=== PATIENT | female | born 1960 | race Caucasian/White ===

== ENCOUNTER 2023-01-02 07:24 | Outpatient (CLI) | payer BC ==
[2023-01-02 07:55] LABS: BASOPHILS # (AUTO) 0.1 10^3/uL (0.0-0.1); EOSINOPHILS # (AUTO) 0.3 10^3/uL (0.0-0.7); EOSINOPHILS % (AUTO) 3.3 %; HCT - HEMATOCRIT 43.4 % (37.0-47.0); HGB - HEMOGLOBIN 13.9 g/dL (12.0-16.0); MEAN CORPUSCULAR VOLUME 96.9 fL (81.0-99.0); MEAN PLATELET VOLUME 10.2 fL (7.9-10.8); MONOCYTES # (AUTO) 0.6 10^3/uL (0.0-1.0); MONOCYTES % (AUTO) 7.2 %; NEUTROPHILS # (AUTO) 5.2 10^3/uL (1.5-6.6); NEUTROPHILS % (AUTO) 63.3 %; PLT - PLATELET COUNT 274 10^3/uL (130-450); RED BLOOD COUNT 4.48 10^6/uL (4.20-5.40); RED CELL DISTRIBUTION WIDTH 12.2 % (12.0-15.0); WHITE BLOOD COUNT 8.2 x10^3/uL (4.8-10.8)
[2023-01-02 08:22] LABS: ALBUMIN 4.2 g/dL (3.2-5.5); ALBUMIN/GLOBULIN RATIO 1.3 (1.0-2.2); ALKALINE PHOSPHATASE 73 IU/L (42-121); ALT ALANINE AMINOTRANSFERASE 32 IU/L (10-60); AST ASPARTATE AMINOTRANSFERASE 31 IU/L (10-42); BILIRUBIN,TOTAL 0.6 mg/dL (0.2-1.0); BUN - BLOOD UREA NITROGEN 12 mg/dL (6-20); CALCIUM 9.4 mg/dL (8.5-10.3); CARBON DIOXIDE - CO2 28 mmol/L (21-32); CHLORIDE 101 mmol/L (101-111); CHOL/HDL RATIO 2.7 (<4.4); CHOLESTEROL 225 mg/dL; CREATININE 0.6 mg/dL (0.4-1.0); GFR - MDRD 102 (>89); GLUCOSE 110 mg/dL (70-100); HDL CHOLESTEROL 84 mg/dL; LDL CHOLESTEROL,CALCULATED 109 mg/dL; LDL/HDL RATIO 1.3 (<4.4); POTASSIUM 4.3 mmol/L (3.5-5.0); SODIUM 138 mmol/L (135-145); TOTAL PROTEIN 7.4 g/dL (6.7-8.2); TRIGLYCERIDES 160 mg/dL; VLDL CHOLESTEROL 32 mg/dL
[2023-01-02 08:39] LABS: THYROID STIMULATING HORMONE 4.73 uIU/mL (0.34-5.60)
[2023-01-02 13:21] LABS: ESTIMATED AVERAGE GLUCOSE 111 mg/dL (70-100); HEMOGLOBIN A1c% 5.5 % (4.27-6.07)
[2023-01-04 02:07] LABS: HIV SCREEN 4TH GENERATION Non Reactive (Non Reactive)
[2023-01-04 08:10] LABS: HCV AB Non Reactive (Non Reactive)
== END 2023-01-02 07:25 | disposition home or self-care (01) ==
LOC: LAB 07:24
PROVIDERS: ATTEND Nurse Practitioner Acute Care
DX: Z13.228 Encounter for screening for other metabolic disorders (principal); Z13.220 Encounter for screening for lipoid disorders; Z13.1 Encounter for screening for diabetes mellitus; Z11.4 Encounter for screening for human immunodeficiency virus [HIV]; Z13.0 Encounter for screening for diseases of the blood and blood-forming organs and certain disorders involving the immune mechanism; Z11.59 Encounter for screening for other viral diseases; Z13.29 Encounter for screening for other suspected endocrine disorder
CPT/HCPCS: 36415; 80053; 80061; 83036; 83721; 84443; 85025; 86803; 87389

== ENCOUNTER 2023-01-20 14:35 | Outpatient (CLI) | payer BC ==
--- NOTE | 2023-01-24 10:03 | Mammography Report ---
BILATERAL DIGITAL SCREENING MAMMOGRAM 3D/2D: 01/20/2023 CLINICAL: Routine screening. Comparison is made to exams dated: 09/21/2020 mammogram, 09/17/2019 mammogram, and 08/08/2018 mammogra m - [facility]. There are scattered areas of fibroglandular density in both breasts (category b / 25%-50% glandular t issue). No significant masses, calcifications, or other findings are seen in either breast. There has been no significant interval change. IMPRESSION: NEGATIVE There is no mammographic evidence of malignancy. A 1 year screening mammogram is recommended. Based on the Tyrer Cuzick model (a risk assessment model) the patients lifetime risk is 6.3% and her 10 year risk is 2.6%. According to the ACR, ACS, and NCCN guidelines, an annual breast MRI exam brice g with mammogram is recommended if the patients lifetime risk is 20% or greater. This exam was interpreted at Station ID: [id number]. NOTE: For mammograms, a report in lay terms will be sent to the patient. Approximately 15% of breast malignancies will not be visualized mammographically. In the management of a palpable breast mass, a negative mammogram must not discourage biopsy of a clinically suspicious lesion. Electronically Signed By: Bryce lay/michael:01/23/2023 17:05:16 letter sent: No_Letter ACR BI-RADS Category 1: Negative 3341F PARENCHYMAL PATTERN: (A) - The breast(s) demonstrate(s) scattered fibroglandular densities. BI-RADS CATEGORY: (1) - 1 Mammogram [id number] 1 year screening LATERALITY: (B)
== END 2023-01-20 14:36 | disposition home or self-care (01) ==
LOC: DI 14:35
PROVIDERS: ATTEND Nurse Practitioner Acute Care
DX: Z12.31 Encounter for screening mammogram for malignant neoplasm of breast (principal)

== ENCOUNTER 2023-09-25 12:34 | Outpatient (CLI) | payer BC ==
[2023-09-25] MEDS ORDERED: iohexoL-300 100 ML VIAL IVP ONE (15:17)
--- NOTE | 2023-09-26 12:10 | CT Report ---
PROCEDURE: SINUS SCREENING WO INDICATIONS: SINUSITIS TECHNIQUE: Noncontrast 3.0 mm axial images acquired from the frontal sinuses to the mid-sella, with coronal and sagittal reformats. For radiation dose reduction, the following was used: automated exposure control , adjustment of mA and/or kV according to patient size. COMPARISON: Correlation is made with the accompanying soft tissue neck CT. FINDINGS: Image quality: Excellent. Maxillary Sinuses: Mucous retention cyst can be seen within the left maxillary sinus. There has been removal of portions of the medial howard of the maxillary sinuses. Ethmoid Air Cells: A few of the ethmoid air cell septations have been removed, right more prominent than left. Sinuses are clear. Sphenoid Sinuses: No bony remodeling or destruction. Sinuses are clear. Frontal Sinuses: No bony remodeling or destruction. Sinuses are clear. Ostiomeatal Complexes: Bilateral antrectomy change is seen. Miscellaneous: Visualized intra-orbital contents are normal. There is a right-sided yann bullosa and a minimal left-sided yann bullosa. There is minimal S shaped nasal septal deviation. IMPRESSION: Bilateral antrectomy change is seen. No significant active paranasal sinus disease is seen. Left maxillary sinus mucus retention cysts are seen. There are bilateral yann bullosa. Minimal S shaped nasal septal deviation. Reviewed by: Dagoberto Fernandez MD on 09/26/2023 11:09 AM [facility] Approved by: Dagoberto Fernandez MD on 09/26/2023 11:09 AM [facility] Station ID: [id number]
== END 2023-09-25 12:35 | disposition home or self-care (01) ==
LOC: DI 12:34
PROVIDERS: ATTEND Nurse Practitioner Acute Care
DX: J32.9 Chronic sinusitis, unspecified (principal); J34.1 Cyst and mucocele of nose and nasal sinus; J34.89 Other specified disorders of nose and nasal sinuses

== ENCOUNTER 2023-09-25 12:39 | Outpatient (CLI) | payer BC ==
--- NOTE | 2023-09-26 12:13 | CT Report ---
PROCEDURE: SOFT TISSUE NECK W INDICATIONS: THROAT IRRITATION, PERSISTENT COUGH CONTRAST: 100mL Omni 300 TECHNIQUE: After the administration of intravenous contrast, 3.0 mm axial sections acquired from the sella to th e aortic arch. Additional oblique axial 3.0 mm sections acquired through the pharynx. 3 mm thick co gloria reformats were generated. For radiation dose reduction, the following was used: automated exp osure control, adjustment of mA and/or kV according to patient size. COMPARISON: Correlation is made with the accompanying sinus CT. FINDINGS: Image quality: Motion artifact is noted. Lymph nodes: No enlarged lymph nodes seen throughout the neck. Vessels: Visualized vasculature appears patent. Neck spaces: Scrutiny is given to the marked area of clinical concern involving the left neck. At th is site, this soft tissue masses are seen. The oropharynx, nasopharynx, and pharynx demonstrate no mucosal lesions. The vocal cords, false voca l cords, pyriform sinuses, epiglottis, vallecula, and tongue base all appear normal. Glands: The parotid and submandibular glands appear normal. The thyroid is normal in size and there are no incidental findings. Miscellaneous: Visualized brain and orbits appear normal. Lung apices appear clear. Superficial so ft tissues appear normal. Bones: No suspicious bony lesions. Mucous retention cyst can be seen within the left maxillary sinus . Bilateral periventricular change is seen. No significant abnormal fluid can be seen within the mast oid air cells. Moderate lower cervical spine degenerative changes are seen. IMPRESSION: Motion limited study demonstrating no mass at the site of palpable concern. No mucosal masses are seen. No enlarged lymph nodes are seen. Reviewed by: Dagoberto Fernandez MD on 09/26/2023 11:12 AM [facility] Approved by: Dagoberto Fernandez MD on 09/26/2023 11:12 AM [facility] Station ID: [id number]
== END 2023-09-25 12:40 | disposition home or self-care (01) ==
LOC: DI 12:39
PROVIDERS: ATTEND Nurse Practitioner Acute Care
DX: J39.2 Other diseases of pharynx (principal); R05.3 Chronic cough; J32.9 Chronic sinusitis, unspecified; J34.1 Cyst and mucocele of nose and nasal sinus; J34.89 Other specified disorders of nose and nasal sinuses
CPT/HCPCS: 70486; 70491; Q9967

== ENCOUNTER 2024-01-10 08:43 | Outpatient (CLI) | payer BC ==
[2024-01-10 09:04] LABS: BASOPHILS # (AUTO) 0.1 10^3/uL (0.0-0.1); BASOPHILS % (AUTO) 1.1 %; EOSINOPHILS # (AUTO) 0.2 10^3/uL (0.0-0.7); EOSINOPHILS % (AUTO) 2.7 %; HCT - HEMATOCRIT 41.6 % (37.0-47.0); HGB - HEMOGLOBIN 13.6 g/dL (12.0-16.0); LYMPHOCYTES # (AUTO) 2.2 10^3/uL (1.5-3.5); LYMPHOCYTES % (AUTO) 26.6 %; MEAN CORPUSCULAR HEMOGLOBIN 31.4 pg (27.0-31.0); MEAN CORPUSCULAR HGB CONC 32.7 g/dL (32.0-36.0); MEAN CORPUSCULAR VOLUME 96.1 fL (81.0-99.0); MEAN PLATELET VOLUME 9.9 fL (7.9-10.8); MONOCYTES # (AUTO) 0.5 10^3/uL (0.0-1.0); MONOCYTES % (AUTO) 6.1 %; NEUTROPHILS # (AUTO) 5.1 10^3/uL (1.5-6.6); PLT - PLATELET COUNT 315 10^3/uL (130-450); RED BLOOD COUNT 4.33 10^6/uL (4.20-5.40); RED CELL DISTRIBUTION WIDTH 12.6 % (12.0-15.0); WHITE BLOOD COUNT 8.2 x10^3/uL (4.8-10.8)
[2024-01-10 09:37] LABS: ALBUMIN 4.5 g/dL (3.2-5.5); ALBUMIN/GLOBULIN RATIO 1.4 (1.0-2.2); ALKALINE PHOSPHATASE 78 IU/L (42-121); ALT ALANINE AMINOTRANSFERASE 21 IU/L (10-60); AST ASPARTATE AMINOTRANSFERASE 19 IU/L (10-42); BILIRUBIN,TOTAL 0.4 mg/dL (0.2-1.0); BUN - BLOOD UREA NITROGEN 12 mg/dL (6-20); CALCIUM 9.8 mg/dL (8.5-10.3); CARBON DIOXIDE - CO2 31 mmol/L (21-32); CHLORIDE 101 mmol/L (101-111); CHOL/HDL RATIO 2.5 (<4.4); CHOLESTEROL 217 mg/dL; CREATININE 0.7 mg/dL (0.6-1.3); GFR - MDRD 85 (>89); GLUCOSE 110 mg/dL (74-104); HDL CHOLESTEROL 88 mg/dL; LDL CHOLESTEROL,CALCULATED 99 mg/dL; LDL/HDL RATIO 1.1 (<4.4); POTASSIUM 4.9 mmol/L (3.5-4.5); SODIUM 138 mmol/L (135-145); TOTAL PROTEIN 7.7 g/dL (6.4-8.9); TRIGLYCERIDES 152 mg/dL (48-352); VLDL CHOLESTEROL 30 mg/dL
[2024-01-10 10:02] LABS: THYROID STIMULATING HORMONE 2.73 uIU/mL (0.34-5.60)
== END 2024-01-10 08:44 | disposition home or self-care (01) ==
LOC: LAB 08:43
PROVIDERS: ATTEND Nurse Practitioner Acute Care
DX: R53.82 Chronic fatigue, unspecified (principal); Z13.228 Encounter for screening for other metabolic disorders; Z13.220 Encounter for screening for lipoid disorders; Z13.29 Encounter for screening for other suspected endocrine disorder; Z13.0 Encounter for screening for diseases of the blood and blood-forming organs and certain disorders involving the immune mechanism; F32.A Depression, unspecified
CPT/HCPCS: 36415; 80053; 80061; 82306; 82728; 82746; 83721; 84443; 85025

== ENCOUNTER 2024-02-26 12:59 | Outpatient (CLI) | payer BC ==
--- NOTE | 2024-02-27 09:46 | Mammography Report ---
BILATERAL DIGITAL SCREENING MAMMOGRAM 3D/2D: 02/26/2024 CLINICAL: Routine screening. Comparison is made to exams dated: 01/20/2023 mammogram - [facility], 09/21/2020 mamm ogram, 09/17/2019 mammogram - [facility], 09/06/2018 mammogram - [facility], 08/08/2018 mammogram, and 08/08/2017 mammogram - [facility]. There are scattered areas of fibroglandular density in both breasts (category b / 25%-50% glandular t issue). No significant masses, calcifications, or other findings are seen in either breast. There has been no significant interval change. IMPRESSION: NEGATIVE There is no mammographic evidence of malignancy. A 1 year screening mammogram is recommended. Based on the Tyrer Cuzick model (a risk assessment model) the patient's lifetime risk is 6.1% and her 10 year risk is 2.6%. According to the ACR, ACS, and NCCN guidelines, an annual breast MRI exam brice g with mammogram is recommended if the patient's lifetime risk is 20% or greater. This exam was interpreted at Station ID: [id number]. NOTE: For mammograms, a report in lay terms will be sent to the patient. Approximately 15% of breast malignancies will not be visualized mammographically. In the management of a palpable breast mass, a negative mammogram must not discourage biopsy of a clinically suspicious lesion. Electronically Signed By: Kat villafuerte/michael:02/26/2024 17:19:06 letter sent: No_Letter ACR BI-RADS Category 1: Negative 3341F PARENCHYMAL PATTERN: (A) - The breast(s) demonstrate(s) scattered fibroglandular densities. BI-RADS CATEGORY: (1) - 1 RECOMMENDATION: (ANNUAL) - Recommend routine annual screening mammography. [id number] 1 year screening LATERALITY: (B)
== END 2024-02-26 13:00 | disposition home or self-care (01) ==
LOC: DI 12:59
PROVIDERS: ATTEND Nurse Practitioner Acute Care
DX: Z12.31 Encounter for screening mammogram for malignant neoplasm of breast (principal); R92.323 Mammographic fibroglandular density, bilateral breasts

== ENCOUNTER 2024-04-22 07:27 | Day surgery (SDC) | payer BC ==
[2024-04-22] MEDS: LACTATED RINGERS 1,000 ML IV ONE ×2 (08:00→09:31)
--- NOTE | 2024-04-22 08:48 | ANESTHESIA ---
Pre-Anesthesia VS, & Labs - Diagnosis screening colonoscopy, history of polyps - Procedure colonoscopy Vital Signs: Temp Pulse Resp BP Pulse Ox O2 Flow Rate 37 C 98 19 153/97 H 95 04/22/24 07:51 04/22/24 07:51 04/22/24 07:51 04/22/24 07:51 04/22/24 07:51 Height: 5 ft 5 in Weight (kg): 104 kg Body Mass Index: 38.1 BMI Classification: Obese - NPO >8 hours - Is Patient ?: No Home Medications and Allergies Home Medications: Ambulatory Orders Albuterol Sulf [Ventolin Hfa Inhaler] 2 inh INH Q4HR PRN 04/19/24 Cholecalciferol (Vitamin D3) [Vitamin D3] 50 mcg PO OAW 04/19/24 Citalopram Hydrobromide [Citalopram HBr] 40 mg PO DAILY 04/19/24 Doxycycline Monohydrate 50 mg PO DAILY 04/19/24 Estradiol/Norethindrone Acet [Combipatch 0.05-0.14 mg Ptch] See Rx Instructions .ROUTE .COMPLEX 04/19/24 Metoclopramide [Reglan] 10 mg PO PRN PRN 04/19/24 ONDANSETRON ODT Prepack 2 [ZOFRAN ODT] 4 mg PO Q6H PRN 04/19/24 Phentermine HCl 60 mg PO DAILY 04/19/24 Semaglutide [Ozempic] 0.25 mg SUBQ OAW 04/19/24 Spironolactone [Aldactone] 50 mg PO DAILY 04/19/24 amLODIPine [Norvasc] 5 mg PO DAILY 04/19/24 Albuterol Sulf [Ventolin Hfa Inhaler] 2 inh INH Q4HR PRN 04/19/24 Cholecalciferol (Vitamin D3) [Vitamin D3] 50 mcg PO OAW 04/19/24 Citalopram Hydrobromide [Citalopram HBr] 40 mg PO DAILY 04/19/24 Doxycycline Monohydrate 50 mg PO DAILY 04/19/24 Estradiol/Norethindrone Acet [Combipatch 0.05-0.14 mg Ptch] See Rx Instructions .ROUTE .COMPLEX 04/19/24 Metoclopramide [Reglan] 10 mg PO PRN PRN 04/19/24 ONDANSETRON ODT Prepack 2 [ZOFRAN ODT] 4 mg PO Q6H PRN 04/19/24 Phentermine HCl 60 mg PO DAILY 04/19/24 Semaglutide [Ozempic] 0.25 mg SUBQ OAW 04/19/24 Spironolactone [Aldactone] 50 mg PO DAILY 04/19/24 amLODIPine [Norvasc] 5 mg PO DAILY 04/19/24 Allergies/Adverse Reactions: Allergies Allergy/AdvReac Type Severity Reaction Status Date / Time Penicillins Allergy Unknown Verified 04/19/24 14:20 Anes History & Medical History - Anesthetic History Anesthesia Complications: reports: No previous complications - Medical History Cardiovascular: reports: Hypertension Pulmonary: reports: Asthma, Sleep apnea (does not use cpap) Gastrointestinal: reports: GERD Urinary: reports: None Neuro: reports: None Musculoskeletal: reports: None Endocrine/Autoimmune: reports: None Blood Disorders: reports: None Skin: reports: Other Smoking Status: Never smoker Psychosocial: reports: Alcohol (2-3 vodka drinks per day) History of Cancer?: No - Surgical History General: Eyes Ears Nose Throat (EENT): reports: Other Gynecologic: reports: section Exam General: Alert, Oriented x3, Cooperative, No acute distress Dental: WNL Mouth Openin Fingerbreadth Neck Mobility: Normal Mallampati classification: II Thyromental Distance: 4-6 cm Mental/Cognitive Status: Alert/Oriented X3, Normal for patient Plan Anesthesia Type: General Consent for Procedure(s) Verified and Reviewed: Yes Code Status: Attempt Resuscitation ASA classification: 2-Mild systemic disease Is this case an emergency?: No
[2024-04-22] MEDS ORDERED: PROPOFOL 500 MG/50 ML 500 MG/50 ML VIAL ONE (08:56)
[2024-04-22] MEDS ORDERED: MIDAZOLAM 2 MG/2 ML VIAL ONE (09:16)
[2024-04-22 10:05] VITALS: BP 125/85; O2SAT 97
--- NOTE | 2024-04-22 10:18 | ANESTHESIA POST OP EVALUATION ---
Anesthesia Post Eval - Post Anesthesia Eval Vitals: Last Vital Signs Temp 37.5 C 04/22/24 09:31 Pulse 80 04/22/24 09:59 Resp 12 04/22/24 09:59 BP 125/85 H 04/22/24 09:59 Pulse Ox 97 04/22/24 09:59 O2 Flow Rate CV Function Including HR & BP: Stable Pain Control: Satisfactory Nausea & Vomiting: Negative Mental Status: Baseline Respiratory Status: Airway Patent Hydration Status: Satisfactory Anesthesia Complications: None
== END 2024-04-22 07:28 | disposition home or self-care (01) ==
LOC: SDS 07:27
PROVIDERS: ATTEND Surgery
DX: Z12.11 Encounter for screening for malignant neoplasm of colon (principal); E66.9 Obesity, unspecified; G47.30 Sleep apnea, unspecified; I10 Essential (primary) hypertension; J45.909 Unspecified asthma, uncomplicated; K64.1 Second degree hemorrhoids; Z68.39 Body mass index [BMI] 39.0-39.9, adult; Z86.010 Personal history of colon polyps
CPT/HCPCS: 45378; J7120

== ENCOUNTER 2024-08-04 16:29 | Emergency (ER) | payer BC ==
--- NOTE | 2024-08-04 17:18 | ED Physician Documentation ---
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 She is unsure of the cats vaccine status. Patient is unsure of her last tetanus but believes it in last 10 years, chart review indicates she had one here in 2018. She states that the back bites are somewhat sore, and she was concern for possible infection therefore she presented to the emergency department. She has had Bites in the past and has tolerated Augmentin though allergy listed to penicillin. Review of Systems Constitutional: reports: Reviewed and negative Cardiac: reports: Reviewed and negative Respiratory: reports: Reviewed and negative Skin: reports: Abrasion (s), Bite / sting Musculoskeletal: reports: Reviewed and negative PD PAST MEDICAL HISTORY - Past Medical History Cardiovascular: Hypertension Respiratory: Asthma, Sleep apnea Neuro: None Endocrine/Autoimmune: None GI: GERD : None HEENT: None Psych: Depression Musculoskeletal: None Derm: Other - Past Surgical History General:  /VOCATIONAL AIDE: section HEENT: Other - Present Medications Home Medications: Ambulatory Orders Medication Instructions Recorded Confirmed Albuterol Sulf [Ventolin Hfa 2 inh INH Q4HR PRN 04/19/24 04/19/24 Inhaler] Cholecalciferol (Vitamin D3) 50 mcg PO OAW 04/19/24 04/19/24 [Vitamin D3] Citalopram Hydrobromide 40 mg PO DAILY 04/19/24 04/19/24 [Citalopram HBr] Doxycycline Monohydrate 50 mg PO DAILY 04/19/24 04/19/24 Estradiol/Norethindrone Acet See Rx Instructions .ROUTE .COMPLEX 04/19/24 04/19/24 [Combipatch 0.05-0.14 mg Ptch] Metoclopramide [Reglan] 10 mg PO PRN PRN 04/19/24 04/19/24 ONDANSETRON ODT Prepack 2 [ZOFRAN 4 mg PO Q6H PRN 04/19/24 04/19/24 ODT] Phentermine HCl 60 mg PO DAILY 04/19/24 04/19/24 Semaglutide [Ozempic] 0.25 mg SUBQ OAW 04/19/24 04/19/24 Spironolactone [Aldactone] 50 mg PO DAILY 04/19/24 04/19/24 amLODIPine [Norvasc] 5 mg PO DAILY 04/19/24 04/19/24 Amox/Clav 875/125 [Augmentin] 1 each PO Q12H #14 tablet 08/04/24 - Allergies Allergies/Adverse Reactions: Allergies Allergy/AdvReac Type Severity Reaction Status Date / Time Penicillins Allergy Unknown Verified 08/04/24 16:47 - Social History Does the pt smoke?: No Smoking Status: Never smoker Does the pt drink ETOH?: Yes ETOH Use: Liquor Does the pt have substance abuse?: No - Immunizations Immunizations are current?: Yes - POLST Patient has POLST: No PD ED PE NORMAL - Vitals Vital signs reviewed: Yes - General General: Alert and oriented X 3, No acute distress, Well developed/nourished - Derm Derm: Normal color, Warm and dry, Other (There are several small puncture dunn and scratches on the right and left index fingers and hands. Mildly sore to touch, no active drainage, no erythema.) - Extremities Extremities: No deformity, No tenderness to palpate, Normal ROM s pain Results - Vitals Vitals: Vital Signs - 24 hr 08/04/24 16:39 Temperature 36.8 C Heart Rate 93 Respiratory 20 Rate Blood Pressure 149/84 H O2 Saturation 97 Oxygen O2 Source Room air PD Medical Decision Making - ED course Complexity details: d/w patient ED course: 63-year-old female presented with cat bites to both her hands as described in HPI. Bites occurred today. Bites occurred from a cat that is new to the cat rescue, she is unsure of his vaccine status but it was not displaying any atypical behavior. Patient's last tetanus was in 2018 therefore she is up-to-date. I recommended that we keep the wounds clean with gentle soap and water and otherwise keep dry, start the patient on Augmentin which she has tolerated in the past to reduce the chance of infection. She was advised if she developed any purulent drainage, increased swelling or erythema or increased pain or new concerns to return to the ER. Departure - Departure Disposition: 01 Home, Self Care Clinical Impression: Cat bite of multiple sites of hand and fingers Qualifiers: Encounter type: initial encounter Laterality: unspecified laterality Qualified Code(s): S61.459A - Open bite of unspecified hand, initial encounter Condition: Good Instructions: ED Bite Cat Prescriptions: Amox/Clav 875/125 [Augmentin] 1 each PO Q12H #14 tablet Comments: Keep Wounds clean with gentle soap and water and monitor for any signs of infection. Will place you on Augmentin which you have had in the past to reduce the chance of infection from the cat bite. Your last tetanus was in our system in 2018 and therefore you are currently up-to-date. I have sent the medication to [facility]. Forms: PCP List
[2024-08-04] MEDS: AMOX/CLAV 875 MG/125 MG TABLET PO STA (17:47)
[2024-08-04 18:24] VITALS: BP 142/80; O2SAT 99
== END 2024-08-04 17:30 | disposition home or self-care (01) ==
LOC: ED 16:29
DX: S61.238A Puncture wound without foreign body of other finger without damage to nail, initial encounter (principal); S61.432A Puncture wound without foreign body of left hand, initial encounter; S61.431A Puncture wound without foreign body of right hand, initial encounter; W55.01XA Bitten by cat, initial encounter; I10 Essential (primary) hypertension; J45.909 Unspecified asthma, uncomplicated; G47.30 Sleep apnea, unspecified; Z79.85 Long-term (current) use of injectable non-insulin antidiabetic drugs; Z79.899 Other long term (current) drug therapy
CPT/HCPCS: 99283; A9270